=== PATIENT | female | born 1990 | race Caucasian/White ===

== ENCOUNTER 2016-08-29 12:50 | Observation (INO) | payer OTHER ==
[~2016-08-29 12:50] MED LIST: ADVAIR 100-501 EACH IH; ADVAIR 1001 DISK W/D; ADVAIR 1001 DISK W/D IH; ADVAIR 5001 DISK W/D; ALBUTEROL SULF8.5 G2 IH; ALBUTEROL17 GM INH; ALBUTEROL2.5 MG/0.5 IH; ANTIVERT25 M1 PO; BIRTH CONTROL RING; COMBIVENT INH14.7 GM; COMBIVENT1 PUFF INH; COMPAZINE10 MG PO; DICLEGIS PO; FEMCON FE PO; FLEXERIL10 MG PO; KEFLEX500 M4 PO; MOTRIN600 MG PO; NASONEX17 GM NS; NORCO 5-325 TA1 EACH PO; NORCO 5/325 TAB1 TAB PO; NORCO 5/3251 TA1 PO; NORCO 5/3251 TAB PO; PEPCID40 M1 PO; PRENATAL GUMMIES PO; PRENATAL-U CAPS1 CAP PO; PRENATAL1 TAB PO; PROMETHAZINE HC25 M3 PO; PROMETHAZINE12.5 M2 PO; REGLAN10 M2 PO; SINGULAIR10 M1 PO; SINGULAIR10 MG; SINGULAIR10 MG PO; SINGULAIR5 MG; TYLENOL WITH C1 EACH PO; VENTOLIN17 GM; VICODIN 5/500 T1 TAB PO; VITAMIN B6100 MG PO; VITAMIN D5000 UNIT PO; ZOFRAN4 M1 PO; ZOFRAN4 MG PO; [UNRECOGNIZED DRUG - OTHER]
== END 2016-08-29 14:25 ==
LOC: LDR 12:50
PROVIDERS: ADMIT Obstetrics & Gynecology Obstetrics
DX: O99.89 Other specified diseases and conditions complicating pregnancy, childbirth and the puerperium (principal); R10.9 Unspecified abdominal pain; R11.2 Nausea with vomiting, unspecified; Z3A.30 30 weeks gestation of pregnancy; Z79.899 Other long term (current) drug therapy; Z88.5 Allergy status to narcotic agent; Z88.8 Allergy status to other drugs, medicaments and biological substances; Z91.018 Allergy to other foods; Z90.89 Acquired absence of other organs; Z98.890 Other specified postprocedural states
CPT/HCPCS: J2765